=== PATIENT | female | born 1985 | race Caucasian/White ===

== ENCOUNTER 2017-08-21 02:00 | Inpatient (IN) | payer OTHER ==
[2017-08-21] VITALS (9 sets, daily range): BP systolic 114–144; BP diastolic 58–83
[~2017-08-21] VITALS: Ht 162.6 cm; Wt 106.2 kg
[~2017-08-21 02:00] MED LIST: BENTYL20 MG PO; IBUPROFEN800 MG PO; MACROBID100 MG PO; ZANTAC150 MG PO
[2017-08-21 02:44] LABS: HEMATOCRIT 34.5 % (36.0-46.0); MCH 30.4 PG (29.0-34.0); MCHC 34.8 G/DL (30.0-36.0); MCV 87.3 FL (83-99); PLATELET COUNT 339 K/uL (156-360); RBC DIS.WIDTH-CV 13.7 % (11.8-14.6); RBC DIS.WIDTH-SD 43.3 % (39-53); RED BLOOD COUNT 3.95 M/uL (3.80-5.20); WHITE BLOOD COUNT 13.7 K/uL (4.1-10.2)
[2017-08-21 03:24] LABS: QUANTITATIVE HCG 16451.8 MIU/ML
[2017-08-21] MEDS ORDERED: METOCLOPRAMIDE10 MG PO (04:57)
[2017-08-21] MEDS ORDERED: PRENATAL TABLE1 EAC3 PO (04:57)
[2017-08-21 07:18] LABS: BASOPHIL (%) 0.2 % (0-1); EOSINOPHIL (%) 2.3 % (0-5); EOSINOPHIL COUNT 0.3 K/uL (0-0.3); IMMATURE GRANULOCYTE (%) 0.3 % (0.0-0.7); LYMPHOCYTE (%) 20.2 % (15-42); LYMPHOCYTE COUNT 2.7 K/uL (1.0-2.8); MONOCYTE (%) 6.3 % (3-12); MONOCYTE COUNT 0.9 K/uL (0-0.8); NEUTROPHIL (%) 70.7 % (45-76); NEUTROPHIL COUNT 9.5 K/uL (1.8-6.4)
[2017-08-21 08:17] LABS: THYROTROPIN (TSH) 6.4 MIU/L (0.4-5.5)
[2017-08-21 08:59] LABS: APPEARANCE CLOUDY ((CLEAR)); BILIRUBIN NEGATIVE; GLUCOSE (STRIP) NEGATIVE; KETONES NEGATIVE; LEUKOCYTES NEGATIVE; NITRITE NEGATIVE; PROTEIN (STRIP) 100; SPECIFIC GRAVITY 1.006 (1.000-1.030); UROBILINOGEN 0.2 MG/DL (0.2-1.0)
[2017-08-21 09:01] LABS: COLOR BLOODY ((YELLOW))
[2017-08-21 09:02] LABS: BLOOD LARGE
[2017-08-21 09:22] LABS: AMPHETAMINE NEGATIVE (500 ng/mL); BARBITURATES NEGATIVE (200 ng/mL); BENZODIAZEPINES NEGATIVE (150 ng/mL); BUPRENORPHINE NEGATIVE (10 ng/mL); COCAINE NEGATIVE (150 ng/mL); METHADONE NEGATIVE (200 ng/mL); METHAMPHETAMINE NEGATIVE (500 ng/mL); OPIATES (MORPHINE) NEGATIVE (100 ng/mL); OXYCODONE NEGATIVE (100 ng/mL); PHENCYCLIDINE NEGATIVE (25 ng/mL); PROPOXYPHENE NEGATIVE (300 ng/mL); THC CANNABINOIDS PRESUMPTIVE POSITIVE (50 ng/mL); TRICYCLIC ANTIDEPRESSANTS NEGATIVE (300 ng/mL)
[2017-08-21 09:50] LABS: RED BLOOD CELLS TNTC /HPF (0-5)
[2017-08-21 09:51] LABS: UCUL ADDED? YES
[2017-08-21 10:29] LABS: HEMOGLOBIN A1c (GLYCOHEMOGLOB) 5.4 % (Below 5.7)
[2017-08-21] MEDS ORDERED: IBUPROFEN800 MG PO (12:26)
== END 2017-08-21 13:42 | disposition home or self-care (01) | DRG 779 ==
LOC: EME 02:00 → LDRP-OP 02:00 → EME 04:54 → EDSTATUS 04:58 → 2WEST 04:59
PROVIDERS: Obstetrics & Gynecology
DX: O02.1 Missed abortion (principal); Z3A.17 17 weeks gestation of pregnancy; O60.12X0 Preterm labor second trimester with preterm delivery second trimester, not applicable or unspecified; O99.214 Obesity complicating childbirth; E66.9 Obesity, unspecified; Z87.891 Personal history of nicotine dependence
CPT/HCPCS: 76815; 81003; 83036; 84443; 84702; 84999; 85025; 85027; 86850; 86900; 86901; 87070; 87075; 87077; 87086; 87186; 87205; 88300; 88305; 88307; 99281; 99284; J7120